=== PATIENT | female | born 1960 | race Caucasian/White ===

== ENCOUNTER → 2024-02-23 | Outpatient (CLI) | payer OTHER ==
[~2024-02-23] MED LIST: ALBUTEROL0.09 MG/A2 INH; ARTIFICIAL TEAR1510 OP; CLARITIN-D 10 M1 T24 PO; FLEXERIL10 MG PO; IBU800 MG PO; MEDROL DOSEPAK4 MG PO; MOTRIN800 MG PO; PERCOCET 325 MG1 TA2 PO; PREDNISONE20 M1 PO; TAMIFLU75 MG PO; VIBRAMYCIN100 MG PO; ZITHROMAX250 MG PO; ZOVIRAX400 MG PO
== END | disposition home or self-care (01) ==
LOC: MAMMO 13:21
PROVIDERS: ATTEND Internal Medicine Medical Oncology
DX: Z12.31 Encounter for screening mammogram for malignant neoplasm of breast (principal); Z51.11 Encounter for antineoplastic chemotherapy; C54.1 Malignant neoplasm of endometrium; G62.0 Drug-induced polyneuropathy; Z45.2 Encounter for adjustment and management of vascular access device; N18.2 Chronic kidney disease, stage 2 (mild); E61.1 Iron deficiency; K90.9 Intestinal malabsorption, unspecified

== ENCOUNTER 2025-01-07 13:06 | Inpatient (IN) | payer MEDICARE ==
[~2025-01-07] VITALS: Ht 170.1 cm; Wt 154.3 kg
[2025-01-07 13:12] VITALS: BP 115/62
[2025-01-07 13:26] LABS: ABG BASE EXCESS 2.2 mmol/L (-2.0-3.0); ABG O2 SATURATION 95.6 % (94.0-98.0); ARTERIAL BLOOD GAS PH 7.416 (7.350-7.450); ARTERIAL BLOOD GAS PO2 85.5 mmHg (83.0-108.0)
[2025-01-07] MEDS ORDERED: METFORMIN HYD1000 MG PO (13:33)
[2025-01-07] MEDS ORDERED: OXYCODONE HCL5 MG PO (13:33)
[2025-01-07] MEDS ORDERED: NEURONTIN300 MG PO (13:34)
[2025-01-07] MEDS ORDERED: GLIMEPIRIDE2 MG PO (13:35)
[2025-01-07] MEDS ORDERED: FENOFIBRATE145 M1 PO (13:35)
[2025-01-07] MEDS ORDERED: CYCLOBENZAPRINE10 MG PO (13:36)
[2025-01-07 13:38] LABS: MEAN CELL VOLUME 90.5 fl (81.0-99.0); MEAN CORPUSCULAR HGB 26.1 pg (27.0-31.0); MEAN PLATELET VOLUME 10.3 fl (9.6-12.3); NUCLEATED RED BLOOD CELL 0.1 10*3/uL (0.0-0.0); NUCLEATED RED BLOOD CELL 1.3 % (0.0-0.0); PLATELET COUNT AUTOMATED 113 10*3/uL (130-400); RED CELL DISTRI WIDTH 18.8 % (0-14.5)
[2025-01-07 13:47] LABS: MANUAL DIFF REFLEX YES
[2025-01-07 13:57] LABS: BUN 19 mg/dl (9-23)
[2025-01-07 13:58] LABS: BASOPHILS 1 % (0-1); ETHYL ALCOHOL < 3.0 mg/dl (<3)
[2025-01-07 13:59] LABS: PLATELET SUFFICIENCY LOW (NORMAL)
[2025-01-07] MEDS ORDERED: Acetaminophen/Hydrocodone 5 MG/325 MG TABLET PO PRN (16:25)
[2025-01-07] MEDS ORDERED: BISACODYL 10 MG SUPP R PRN (16:25)
[2025-01-07] MEDS ORDERED: Ondansetron Hydrochloride 4 MG/2 ML VIAL IV PRN (16:25)
[2025-01-07] MEDS ORDERED: BISACODYL 5 MG TAB PO PRN (16:25)
[2025-01-07] MEDS ORDERED: SODIUM CHLORIDE 0.9% 1,000 ML IV SCH (16:25)
[2025-01-07] MEDS ORDERED: ACETAMINOPHEN 650 MG SUPP R PRN (16:25)
[2025-01-07] MEDS ORDERED: ACETAMINOPHEN 325 MG TAB PO PRN (16:25)
[2025-01-07] MEDS ORDERED: TEMAZEPAM 15 MG CAP PO PRN (16:25)
[2025-01-07 16:30] VITALS: BP 123/67
[2025-01-07] MEDS ORDERED: BARIUM SULFATE 2% 450 ML BOT PO SCH (17:15)
[2025-01-07] MEDS ORDERED: FUROSEMIDE 40 MG TAB PO SCH (18:00)
[2025-01-07] MEDS ORDERED: Cyclobenzaprine Hydrochlorid 10 MG TAB PO PRN (18:50)
[2025-01-07] MEDS ORDERED: HEPARIN SODIUM 250 ML IV SCH (19:10)
[2025-01-07 20:00] VITALS: BP 120/49
[2025-01-07] MEDS ORDERED: GABAPENTIN 300 MG CAP PO SCH (22:00)
[2025-01-07] MEDS ORDERED: HEPARIN SODIUM 5,000 UNIT/ML VIAL SC SCH ×2 (22:00)
[2025-01-08] VITALS: BP 141/65
[2025-01-08 03:41] LABS: MEAN CELL VOLUME 92.3 fl (81.0-99.0); MEAN CORPUSCULAR HGB 25.9 pg (27.0-31.0); MEAN PLATELET VOLUME 9.9 fl (9.6-12.3); NUCLEATED RED BLOOD CELL 0.0 10*3/uL (0.0-0.0); NUCLEATED RED BLOOD CELL 0.6 % (0.0-0.0); PLATELET COUNT AUTOMATED 117 10*3/uL (130-400); RED CELL DISTRI WIDTH 19.7 % (0-14.5)
[2025-01-08 03:43] LABS: MANUAL DIFF REFLEX YES
[2025-01-08 04:14] LABS: PLATELET SUFFICIENCY LOW (NORMAL)
[2025-01-08 04:17] LABS: BUN 19.0 mg/dl (9-23); FREE T4 0.76 ng/dl (0.89-1.76); SGPT/ALT 18.0 U/L (5-49)
[2025-01-08 04:19] LABS: LDL CHOLESTEROL 43.0 mg/dL (9-159)
[2025-01-08 07:03] LABS: VITAMIN D, 25-HYDROXY 29.6 ng/mL (30-100)
[2025-01-08 08:00] VITALS: BP 115/52
[2025-01-08 08:00] LABS: BILIRUBIN Negative (Negative); BLOOD Trace-Intact (Negative); CLARITY Cloudy (Clear); COLOR Yellow (Yellow); KETONE Negative (Negative); LEUKO ESTERASE Trace (Negative); NITRITE Positive (Negative); PH 5.5 (4.5-8.0); SPECIFIC GRAVITY 1.015 (1.001-1.030); UROBILINOGEN 1.0 E.U./dl (0.0-1.0)
[2025-01-08 08:15] LABS: BACTERIA 4+; WBC 16-20 wbc/hpf (0-5)
[2025-01-08] MEDS ORDERED: Dexamethasone Sodium Phospha 4 MG/ML VIAL IV SCH (10:00)
[2025-01-08] MEDS ORDERED: FENOFIBRATE 145 MG TAB PO SCH (10:00)
[2025-01-08 12:00] VITALS: BP 121/68
[2025-01-08] MEDS ORDERED: DEXTROSE 50% 25 GM/50 ML VIAL IV PRN (12:05)
[2025-01-08] MEDS ORDERED: DEXTROSE 10 % IN WATER 250 ML IV PRN (12:05)
[2025-01-08 16:00] VITALS: BP 132/74
[2025-01-08] MEDS ORDERED: INSULIN LISPRO 1 UNIT/0.01 ML SQ SCH (16:30)
[2025-01-08] MEDS ORDERED: FUROSEMIDE 40 MG/4 ML VIAL IV SCH (18:00)
[2025-01-08] MEDS ORDERED: FUROSEMIDE 40 MG IV SCH (18:00)
[2025-01-08 20:00] VITALS: BP 99/80
[2025-01-09] VITALS: BP 151/77
[2025-01-09 06:32] LABS: MEAN CELL VOLUME 89.3 fl (81.0-99.0); MEAN CORPUSCULAR HGB 26.0 pg (27.0-31.0); MEAN PLATELET VOLUME 10.7 fl (9.6-12.3); NUCLEATED RED BLOOD CELL 0.0 10*3/uL (0.0-0.0); NUCLEATED RED BLOOD CELL 1.1 % (0.0-0.0); PLATELET COUNT AUTOMATED 103 10*3/uL (130-400); RED CELL DISTRI WIDTH 20.1 % (0-14.5)
[2025-01-09 06:57] LABS: BUN 25.0 mg/dl (9-23)
[2025-01-09 07:22] LABS: MANUAL DIFF REFLEX YES
[2025-01-09 07:34] LABS: PLATELET SUFFICIENCY LOW (NORMAL)
[2025-01-09 08:00] VITALS: BP 134/89
[2025-01-09 12:00] VITALS: BP 155/53
[2025-01-09] MEDS ORDERED: ATORVASTATIN CALCIUM 40 MG TABLET PO SCH (12:45)
[2025-01-09 16:00] VITALS: BP 144/59
[2025-01-09 20:00] VITALS: BP 116/86; BP 138/54
[2025-01-10] VITALS: BP 140/55
[2025-01-10 06:12] LABS: BUN 28.0 mg/dl (9-23)
[2025-01-10 06:15] LABS: BASO # 0.0 10*3/uL (0.0-0.1); BASO % 0.0 % (0.0-1.0); EOS # 0.0 10*3/uL (0.0-0.4); EOS % 0.7 % (1.0-4.0); MEAN CELL VOLUME 91.0 fl (81.0-99.0); MEAN CORPUSCULAR HGB 26.4 pg (27.0-31.0); MEAN PLATELET VOLUME 11.6 fl (9.6-12.3); MONO # 0.4 10*3/uL (0.1-1.0); MONO % 11.9 % (3.0-9.0); NEUT # 2.1 10*3/uL (2.3-7.9); NEUT % 68.2 % (47.0-73.0); NUCLEATED RED BLOOD CELL 0.0 % (0.0-0.0); NUCLEATED RED BLOOD CELL 0.0 10*3/uL (0.0-0.0); PLATELET COUNT AUTOMATED 123 10*3/uL (130-400); RED CELL DISTRI WIDTH 20.5 % (0-14.5)
[2025-01-10 08:00] VITALS: BP 149/53
[2025-01-10 12:00] VITALS: BP 144/85
[2025-01-10] MEDS ORDERED: KLOR-CON 1010 ME1 PO (12:45)
[2025-01-10] MEDS ORDERED: ATORVASTATIN CA40 M1 PO (12:45)
[2025-01-10] MEDS ORDERED: LASIX40 MG PO (12:45)
== END 2025-01-10 16:30 | disposition home or self-care (01) | DRG 871 ==
LOC: ED 13:06 → EDHOLD 15:14 → 5E 15:14
PROVIDERS: Emergency Medicine; Internal Medicine; Student in an Organized Health Care Education/Training Program; ADMIT Internal Medicine; ATTEND Internal Medicine
DX: A41.89 Other specified sepsis (principal); G93.41 Metabolic encephalopathy; J96.01 Acute respiratory failure with hypoxia; U07.1 COVID-19; N17.0 Acute kidney failure with tubular necrosis; I21.4 Non-ST elevation (NSTEMI) myocardial infarction; D61.818 Other pancytopenia; R65.20 Severe sepsis without septic shock; E11.40 Type 2 diabetes mellitus with diabetic neuropathy, unspecified; I11.0 Hypertensive heart disease with heart failure; E78.5 Hyperlipidemia, unspecified; K74.60 Unspecified cirrhosis of liver; E27.9 Disorder of adrenal gland, unspecified; I50.9 Heart failure, unspecified; Z88.0 Allergy status to penicillin; Z88.2 Allergy status to sulfonamides; Z88.8 Allergy status to other drugs, medicaments and biological substances; Z91.09 Other allergy status, other than to drugs and biological substances; Z79.899 Other long term (current) drug therapy; Z79.01 Long term (current) use of anticoagulants; Z79.2 Long term (current) use of antibiotics; Z90.49 Acquired absence of other specified parts of digestive tract; Z90.710 Acquired absence of both cervix and uterus; Z90.722 Acquired absence of ovaries, bilateral; Z84.1 Family history of disorders of kidney and ureter; Z83.6 Family history of other diseases of the respiratory system

== ENCOUNTER → 2025-02-23 | Outpatient (CLI) | payer MEDICARE ==
[~2025-02-23] MED LIST changes: +ATORVASTATIN CA40 M1 PO; +CYCLOBENZAPRINE10 MG PO; +FENOFIBRATE145 M1 PO; +GLIMEPIRIDE2 MG PO; +KLOR-CON 1010 ME1 PO; +LASIX40 MG PO; +METFORMIN HYD1000 MG PO; +NEURONTIN100 MG PO; +OXYCODONE HCL5 MG PO; +PANTOPRAZOLE SO40 MG PO; +Regadenoson 0.4 MG/5 ML SYR IV ONE
== END | disposition home or self-care (01) ==
LOC: CARD 01:30
PROVIDERS: ATTEND Nurse Practitioner Family
DX: R06.02 Shortness of breath (principal); I50.9 Heart failure, unspecified; R78.89 Finding of other specified substances, not normally found in blood; E11.9 Type 2 diabetes mellitus without complications; E78.5 Hyperlipidemia, unspecified

== ENCOUNTER 2025-03-22 16:33 | Emergency (ER) | payer MEDICARE ==
[~2025-03-22 16:33] MED LIST changes: -Regadenoson 0.4 MG/5 ML SYR IV ONE
[2025-03-22 18:22] LABS: MANUAL DIFF REFLEX YES; MEAN CELL VOLUME 89.1 fl (81.0-99.0); MEAN CORPUSCULAR HGB 25.4 pg (27.0-31.0); MEAN PLATELET VOLUME 9.6 fl (9.6-12.3); NUCLEATED RED BLOOD CELL 0.0 % (0.0-0.0); NUCLEATED RED BLOOD CELL 0.0 10*3/uL (0.0-0.0); PLATELET COUNT AUTOMATED 128 10*3/uL (130-400); RED CELL DISTRI WIDTH 16.7 % (0-14.5)
[2025-03-22 18:42] LABS: BUN 21.0 mg/dl (9-23)
[2025-03-22 18:44] LABS: PLATELET SUFFICIENCY LOW (NORMAL); STOMATOCYTE FEW
[2025-03-22 19:30] VITALS: BP 121/68
[2025-03-22] MEDS ORDERED: SODIUM CHLORIDE 0.9% 500 ML IV ONE (19:35)
[2025-03-22 19:45] VITALS: BP 139/78
[2025-03-22 20:01] VITALS: BP 139/78
[2025-03-22 20:15] VITALS: BP 147/60
[2025-03-22 20:30] VITALS: BP 133/57
[2025-03-22 20:50] VITALS: BP 142/74
== END 2025-03-22 21:51 | disposition home or self-care (01) ==
LOC: ED 16:33
PROVIDERS: Nurse Practitioner Family
DX: D50.9 Iron deficiency anemia, unspecified (principal); D69.6 Thrombocytopenia, unspecified; Z88.0 Allergy status to penicillin; Z88.2 Allergy status to sulfonamides; Z88.1 Allergy status to other antibiotic agents; Z79.899 Other long term (current) drug therapy; Z79.84 Long term (current) use of oral hypoglycemic drugs; Z90.710 Acquired absence of both cervix and uterus; Z90.49 Acquired absence of other specified parts of digestive tract; Z90.89 Acquired absence of other organs; Z87.891 Personal history of nicotine dependence